=== PATIENT | female | born 1955 | race Two or more races ===

== ENCOUNTER 2020-07-19 10:09 | Outpatient (REF) | payer OTHER, SELFPAY | END 2020-07-19 10:10 | disposition home or self-care (01) | LOC: HO.LAB 10:09 | PROVIDERS: PCP Internal Medicine; Visit Provider Internal Medicine | DX: Z20.828 Contact with and (suspected) exposure to other viral communicable diseases (principal) | CPT/HCPCS: U0003 ==

== ENCOUNTER 2020-09-16 13:49 | Outpatient (REF) | payer OTHER, SELFPAY | END 2020-09-16 13:50 | disposition home or self-care (01) | LOC: HO.LAB 13:49 | PROVIDERS: Visit Provider Internal Medicine | DX: Z20.828 Contact with and (suspected) exposure to other viral communicable diseases (principal) | CPT/HCPCS: C9803; U0003 ==